=== PATIENT | male | born 1990 | race Hispanic/Latino ===

== ENCOUNTER 2025-01-08 14:24 | Emergency (ER) | payer SELFPAY ==
[2025-01-08 14:35] VITALS: BP 135/85; PULSE 95; RESP 16; TEMP 36.6; O2SAT 100
--- NOTE | 2025-01-08 16:37 | ED.GENADULT ---
HPI - General Adult General Chief complaint: Unspecified <Monika Thao APRN - Last Filed: 01/09/25 17:06> Stated complaint: heat exhaustion <Monika Thao APRN - Last Filed: 01/09/25 17:06> Time Seen by Provider: 01/08/25 16:30 <Monika Thao APRN - Last Filed: 01/09/25 17:06> Focused HPI: Patient is a 34-year-old non-Anguillan speaking male who presents to the ER concerns for dehydration. He reports his symptoms have been going on for days to months. 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 He also reports he drinks 8-10 liters of water/day. Pt denies any recent fevers, new onset swelling, chest pain, or abdominal pain. He denies any medical history relevant to this ER visit. GENERAL: Ill-appearing, well-nourished, and in no acute distress. HEAD: Normocephalic, atraumatic. CHEST: Clear to auscultation. ?No respiratory distress. HEART: Regular rate and rhythm.? NEURO: ?Alert and oriented x3. Patient screened in triage and initial orders placed.? ?Additional care and disposition to be based upon?diagnostic testing and treatment. <Monika Thao APRN - Last Filed: 01/09/25 17:06> History of Present Illness HPI narrative: per HPI <Stephanie Larson MD - Last Filed: 01/08/25 23:56> Related Data Allergies/adverse reactions: Allergies Allergy/AdvReac Type Severity Reaction Status Date / Time No Known Allergies Allergy Verified 01/08/25 18:13 <Monika Thao APRN - Last Filed: 01/09/25 17:06> Review of Systems Review of Systems: All systems reviewed & are unremarkable except as noted in HPI and below <Stephanie Larson MD - Last Filed: 01/08/25 23:56> Exam Narrative: EXAMINATION OF ORGAN SYSTEMS/BODY AREAS: Constitutional: Vital signs per nursing GENERAL:[No acute distress, non-toxic appearing.] HEAD: Normal with no signs of head trauma. EYES: EOMI, conjunctiva normal ENT: Hearing grossly intact LUNGS: Nonlabored breathing. HEART: [Regular rate and rhythm] ABD: [Soft], [nontender to palpation] EXT: Normal range of motion SKIN: [No rashes or lesions.] NEURO: [Alert and oriented x 3. No gross focal sensory or strength deficits.] PSYCH: Normal affect <Stephanie Larson MD - Last Filed: 01/08/25 23:56> Course Vital Signs Vital signs: Vital Signs Temperature 36.6 C 01/08/25 14:35 Pulse Rate 95 01/08/25 14:35 Respiratory Rate 16 01/08/25 14:35 Blood Pressure 135/85 01/08/25 14:35 Pulse Oximetry 100 01/08/25 14:35 Oxygen Delivery Room Air 01/08/25 14:35 Temperature 36.6 C 01/08/25 20:11 Pulse Rate 70 01/08/25 20:11 Respiratory Rate 16 01/08/25 20:11 Blood Pressure 144/75 H 01/08/25 20:11 Pulse Oximetry 100 01/08/25 20:11 Oxygen Delivery Room Air 01/08/25 18:06 <Monika Thao APRN - Last Filed: 01/09/25 17:06> Vital Signs Temperature 36.6 C 01/08/25 14:35 Pulse Rate 95 01/08/25 14:35 Respiratory Rate 16 01/08/25 14:35 Blood Pressure 135/85 01/08/25 14:35 Pulse Oximetry 100 01/08/25 14:35 Oxygen Delivery Room Air 01/08/25 14:35 Temperature 36.6 C 01/08/25 20:11 Pulse Rate 70 01/08/25 20:11 Respiratory Rate 16 01/08/25 20:11 Blood Pressure 144/75 H 01/08/25 20:11 Pulse Oximetry 100 01/08/25 20:11 Oxygen Delivery Room Air 01/08/25 18:06 <Stephanie Larson MD - Last Filed: 01/08/25 23:56> Medical Decision Making MDM Narrative Medical decision making narrative: Patient works outside in the heat, for last 1 month, despite however much he tries to drink including Gatorade, he still is sweating a lot and occasionally feels lightheaded when he has been outside working for a long time. He is overall well-appearing here, after IV fluids here he feels much better, labs within acceptable limits, normal CK, no signs of rhabdomyolysis, some trace ketones and slightly elevated BUN/creatinine but otherwise nothing significant. Patient counseled to try to avoid sun exposure at all possible, and wear heat protective gear, try to take multiple breaks especially if he starts having any symptoms, and keep hydrated, and come back to the ER if he has any further issues. blocker hand used, patient expresses understanding and agreement <Stephanie Larson MD - Last Filed: 01/08/25 23:56> Vital Signs Vital Signs: Vital Signs Temperature 36.6 C 01/08/25 14:35 Pulse Rate 95 01/08/25 14:35 Respiratory Rate 16 01/08/25 14:35 Blood Pressure 135/85 01/08/25 14:35 Pulse Oximetry 100 01/08/25 14:35 Oxygen Delivery Room Air 01/08/25 14:35 Temperature 36.6 C 01/08/25 20:11 Pulse Rate 70 01/08/25 20:11 Respiratory Rate 16 01/08/25 20:11 Blood Pressure 144/75 H 01/08/25 20:11 Pulse Oximetry 100 01/08/25 20:11 Oxygen Delivery Room Air 01/08/25 18:06 <Monika Thao INVESTMENT RECOVERY TECHNICIAN - Last Filed: 01/09/25 17:06> Vital Signs Temperature 36.6 C 01/08/25 14:35 Pulse Rate 95 01/08/25 14:35 Respiratory Rate 16 01/08/25 14:35 Blood Pressure 135/85 01/08/25 14:35 Pulse Oximetry 100 01/08/25 14:35 Oxygen Delivery Room Air 01/08/25 14:35 Temperature 36.6 C 01/08/25 20:11 Pulse Rate 70 01/08/25 20:11 Respiratory Rate 16 01/08/25 20:11 Blood Pressure 144/75 H 01/08/25 20:11 Pulse Oximetry 100 01/08/25 20:11 Oxygen Delivery Room Air 01/08/25 18:06 <Stephanie Larson MD - Last Filed: 01/08/25 23:56> Lab Data Result diagrams: 01/08/25 16:32 01/08/25 16:32 <Monika Thao APRN - Last Filed: 01/09/25 17:06> Labs: Lab Results 01/08/25 01/08/25 Range/Units 16:32 17:18 WBC 10.2 H (4.5-10.0) K/mm3 RBC 4.63 (4.6-6.20) M/mm3 Hgb 13.8 L (14.0-18.0) g/dL Hct 41.2 L (42.0-52.0) % MCV 89.0 (80-100) fl MCH 29.8 (26-34) pg MCHC 33.5 (32-36) g/dl RDW 12.7 (11.5-14.5) % Plt Count 393 H (150-375) k/mm3 MPV 8.9 (7.4-10.4) fl Immature Gran % (Auto) 0.2 (0-0.5) % Neut % (Auto) 70.3 (45.5-73.1) % Lymph % (Auto) 22.9 (18.3-44.2) % [place] % (Auto) 6.0 (2.6-8.5) % Eos % (Auto) 0.3 (0-4.4) % Baso % (Auto) 0.3 (0.2-1.2) % Lymph # (Auto) 2.33 (0.9-3.2) K/mm3 [place] # (Auto) 0.6 (0.1-0.6) K/mm3 Eos # (Auto) 0.0 (0-0.3) K/mm3 Baso # (Auto) 0.0 (0.0-0.1) K/mm3 Abs Immat Gran (auto) 0.02 (0.00-0.031) K/mm3 Absolute Neuts (auto) 7.1 H (1.3-6.7) K/mm3 Absolute Nucleated RBC 0.000 (0.0-0.012) K/mm3 Nucleated RBC % 0.0 (0.0-0.2) % Sodium 141 (137-145) mmol/L Potassium 4.2 (3.4-5.0) mmol/L Chloride 105 (98-107) mmol/L Carbon Dioxide 27 (22-30) mmol/L Anion Gap 9 (4-12) mmol/L BUN 24 H (9-20) mg/dL Creatinine 1.08 (0.7-1.3) mg/dL Estim Creat Clear Calc Not Reportable Estimated GFR > 60 (59 - ) Glucose 92 (65-110) mg/dL Calcium 9.6 (8.4-10.2) mg/dL Total Bilirubin 0.3 (0.2-1.3) mg/dL AST 38 (17-59) U/L ALT 37 (6-50) U/L Alkaline Phosphatase 93 (38-126) U/L Total Creatine Kinase 228 H (55-170) U/L Total Protein 8.5 H (6.3-8.2) g/dL Albumin 4.8 (3.5-5.1) g/dL Urine Color Yellow (Yellow) Urine Appearance Clear (Clear) Urine pH 7.5 (5.0-9.0) Ur Specific [place] 1.022 (1.001-1.035) Urine Protein Negative (Negative) mg/dL Urine Glucose (UA) Negative (Negative) mg/dL Urine Ketones Trace H (Negative) mg/dL Ur Blood (Man) Negative (Negative) Urine Nitrate Negative (Negative) Urine Bilirubin Negative (Negative) Urine Urobilinogen 1.0 (<2.0) mg/dL Leukocyte Esterase Rfl Negative (Negative) ANTONIO/UL <Monika Thao, INVESTMENT RECOVERY TECHNICIAN - Last Filed: 01/09/25 17:06> Lab Results 01/08/25 01/08/25 Range/Units 16:32 17:18 WBC 10.2 H (4.5-10.0) K/mm3 RBC 4.63 (4.6-6.20) M/mm3 Hgb 13.8 L (14.0-18.0) g/dL Hct 41.2 L (42.0-52.0) % MCV 89.0 (80-100) fl MCH 29.8 (26-34) pg MCHC 33.5 (32-36) g/dl RDW 12.7 (11.5-14.5) % Plt Count 393 H (150-375) k/mm3 MPV 8.9 (7.4-10.4) fl Immature Gran % (Auto) 0.2 (0-0.5) % Neut % (Auto) 70.3 (45.5-73.1) % Lymph % (Auto) 22.9 (18.3-44.2) % [place] % (Auto) 6.0 (2.6-8.5) % Eos % (Auto) 0.3 (0-4.4) % Baso % (Auto) 0.3 (0.2-1.2) % Lymph # (Auto) 2.33 (0.9-3.2) K/mm3 [place] # (Auto) 0.6 (0.1-0.6) K/mm3 Eos # (Auto) 0.0 (0-0.3) K/mm3 Baso # (Auto) 0.0 (0.0-0.1) K/mm3 Abs Immat Gran (auto) 0.02 (0.00-0.031) K/mm3 Absolute Neuts (auto) 7.1 H (1.3-6.7) K/mm3 Absolute Nucleated RBC 0.000 (0.0-0.012) K/mm3 Nucleated RBC % 0.0 (0.0-0.2) % Sodium 141 (137-145) mmol/L Potassium 4.2 (3.4-5.0) mmol/L Chloride 105 (98-107) mmol/L Carbon Dioxide 27 (22-30) mmol/L Anion Gap 9 (4-12) mmol/L BUN 24 H (9-20) mg/dL Creatinine 1.08 (0.7-1.3) mg/dL Estim Creat Clear Calc Not Reportable Estimated GFR > 60 (59 - ) Glucose 92 (65-110) mg/dL Calcium 9.6 (8.4-10.2) mg/dL Total Bilirubin 0.3 (0.2-1.3) mg/dL AST 38 (17-59) U/L ALT 37 (6-50) U/L Alkaline Phosphatase 93 (38-126) U/L Total Creatine Kinase 228 H (55-170) U/L Total Protein 8.5 H (6.3-8.2) g/dL Albumin 4.8 (3.5-5.1) g/dL Urine Color Yellow (Yellow) Urine Appearance Clear (Clear) Urine pH 7.5 (5.0-9.0) Ur Specific [place] 1.022 (1.001-1.035) Urine Protein Negative (Negative) mg/dL Urine Glucose (UA) Negative (Negative) mg/dL Urine Ketones Trace H (Negative) mg/dL Ur Blood (Man) Negative (Negative) Urine Nitrate Negative (Negative) Urine Bilirubin Negative (Negative) Urine Urobilinogen 1.0 (<2.0) mg/dL Leukocyte Esterase Rfl Negative (Negative) ANTONIO/UL <Stephanie Larson MD - Last Filed: 01/08/25 23:56> Discharge Plan Discharge Clinical Impression: Heat exhaustion <Monika Thao APRN - Last Filed: 01/09/25 17:06> Patient Disposition: Home <Monika Thao APRN - Last Filed: 01/09/25 17:06> Condition: Stable <Monika Thao APRN - Last Filed: 01/09/25 17:06> Instructions: Dehydration (ED), Heat Exhaustion (ED) <Monika Thao APRN - Last Filed: 01/09/25 17:06> Additional Instructions: Please try to wear heat and sun protection; continue making sure you are drinking a lot of fluids especially fluids with electrolytes. Try to take more breaks if possible. You can always return to the ER if you feel worse. <Monika Thao APRN - Last Filed: 01/09/25 17:06> Patient Language: Icelandic <Monika Thao APRN - Last Filed: 01/09/25 17:06> Follow-up/Referrals: PHYSICIAN NOT ON STAFF,NONSTAFF [Primary Care Provider] - <Monika Thao APRN - Last Filed: 01/09/25 17:06>
[2025-01-08 16:46] LABS: Hematocrit 41.2 % (42.0-52.0); Hemoglobin 13.8 g/dL (14.0-18.0); Immature Granulocyte Percent A 0.2 % (0-0.5); Lymphocytes Absolute Auto 2.33 K/mm3 (0.9-3.2); Mean Corpuscular HGB Conc 33.5 g/dl (32-36); Mean Corpuscular Hemoglobin 29.8 pg (26-34); Mean Corpuscular Volume 89.0 fl (80-100); Nucleated Red Blood Cells Absolute Auto 0.000 K/mm3 (0.0-0.012); Nucleated Red Blood Cells Perc 0.0 % (0.0-0.2); Platelet Count Result 393 k/mm3 (150-375); Red Blood Count 4.63 M/mm3 (4.6-6.20); White Blood Count 10.2 K/mm3 (4.5-10.0)
[2025-01-08 16:54] LABS: Alanine Aminotransferase 37 U/L (6-50); Albumin Level 4.8 g/dL (3.5-5.1); Alkaline Phosphatase 93 U/L (38-126); Anion Gap 9 mmol/L (4-12); Aspartate Amino Transferase 38 U/L (17-59); Bilirubin,Total 0.3 mg/dL (0.2-1.3); Blood Urea Nitrogen 24 mg/dL (9-20); Calcium 9.6 mg/dL (8.4-10.2); Carbon Dioxide 27 mmol/L (22-30); Chloride 105 mmol/L (98-107); Creatine Kinase 228 U/L (55-170); Estimated Glomerular Filt Rate > 60; Glucose 92 mg/dL (65-110); Potassium 4.2 mmol/L (3.4-5.0); Sodium 141 mmol/L (137-145); Total Protein 8.5 g/dL (6.3-8.2)
[2025-01-08 17:28] LABS: Add Urine Microscopic? NO; Appearance Urine Clear (Clear); Glucose Urine UA Negative (Negative); Leukocyte Esterase Ur Negative LEU/UL (Negative); Nitrate Urine Negative (Negative); Specific Grav Ur 1.022 (1.001-1.035)
[2025-01-08 18:06] VITALS: BP 164/93; PULSE 70; PULSE 75; RESP 17; TEMP 36.6; O2SAT 100
[2025-01-08 18:15] VITALS: BP 145/80; PULSE 77; RESP 18; O2SAT 100
--- NOTE | 2025-01-08 18:59 | ECG_ITS ---
Test Date: 2025-01-08 19:25:36 Measurements Intervals [place] Rate: 72 P: 56 [place]: 172 QRS: 49 QRSD: 92 T: 33 QT: 355 QTc: 390 Interpretive Statements SINUS RHYTHM No previous ECG available for comparison Electronically Signed On 01-09-2025 17:15:55 CDT by Bulmaro Wahl D.O
[2025-01-08 19:08] VITALS: BP 134/79; PULSE 66; RESP 19; O2SAT 100
[2025-01-08] MEDS: LACTATED RINGERS 1,000 ML 999 ML IV CONT (19:08)
--- NOTE | 2025-01-08 19:21 | PC.NURSE ---
Assumed care of patient after receiving bedside report from KALEY Franklin @ [phone]
[2025-01-08 20:11] VITALS: BP 144/75; PULSE 70; RESP 16; TEMP 36.6; O2SAT 100
== END 2025-01-08 20:06 | disposition home or self-care (01) ==
LOC: ANHED 19:50
PROVIDERS: Registered Nurse; Emergency Provider Emergency Medicine
DX: T67.5XXA Heat exhaustion, unspecified, initial encounter (principal); X30.XXXA Exposure to excessive natural heat, initial encounter
CPT/HCPCS: 36415; 80053; 81003; 82550; 85025; 93005; 96360; 99284; J7120